=== PATIENT | female | born 1985 | race Caucasian/White ===

== ENCOUNTER 2020-09-27 19:16 | Emergency (ER) | payer OTHER ==
[~2020-09-27] VITALS: Ht 154.9 cm; Wt 79.4 kg
[2020-09-27 19:22] VITALS: BP 123/76
--- NOTE | 2020-09-27 19:29 | NUR ---
patient ambulated to room 02 with steady gait.
--- NOTE | 2020-09-27 19:30 | NUR ---
35/F BIB caregiver c/o left ankle pain x 3 days, self medicated Tylenol 500 mg and Neosporin yesterday at 1900. Pt describes pain as aching/throbbing. Upon assessment, redness and swelling noted. No discharges noted. med hx: mild retardation, bipolar, high cholesterol allergies: nka
--- NOTE | 2020-09-27 19:33 | NUR ---
Dr. Henley examining patient.
[2020-09-27] MEDS ORDERED: CEPH-588 PO (19:43)
[2020-09-27] MEDS: IBUPROFEN 400 MG TAB PO ONE (19:53)
[2020-09-27 20:11] VITALS: BP 123/76
--- NOTE | 2020-09-27 20:11 | NUR ---
Patient discharged with v/s stable. Written and verbal after care instructions given and explained. Patient alert, oriented and verbalized understanding of instructions. Ambulatory with by caregiver. All questions addressed prior to discharge. ID band removed. Patient advised to follow up with PMD. Rx of Keflex given. Patient educated on indication of medication including possible reaction and side effects. Opportunity to ask questions provided and answered.
== END 2020-09-27 20:11 | disposition home or self-care (01) ==
LOC: MED 19:16
DX: L03.116 Cellulitis of left lower limb (principal); L84 Corns and callosities
CPT/HCPCS: 90471; 90715; 99283